=== PATIENT | female | born 1960 | race Caucasian/White ===

== ENCOUNTER 2017-03-16 06:53 | Day surgery (SDC) | payer OTHER ==
[~2017-03-16 06:53] MED LIST: RINGERS SOLUTION,LACTATED 1,000 ML IV PRN
[2017-03-16] MEDS ORDERED: RINGERS SOLUTION,LACTATED 1,000 ML IV ONE (07:35)
--- NOTE | 2017-03-16 08:49 | OR ---
Operative Report - Dictated Report Narrative: Date: 03/16/2017 Surgeon: José Miguel Lund MD Proctoring surgeon: Olu Bryan MD Preoperative diagnosis: Screening colonoscopy Postoperative diagnosis: Same. Normal colon. Procedure: Total Colonoscopy Description: This patient is undergoing a colonoscopy for screening purposes. After informed consent was obtained and appropriate premedication had been given by [employer] with the patient in left lateral decubitus position a flexible fiberoptic video colonoscope was introduced and advanced without difficulty under direct vision to the cecum. The usual landmarks were identified. Preparation was excellent and excellent views were obtained. The findings were of a normal cecum, normal ascending colon, normal transverse colon, normal descending and sigmoid colon. Rectum was normal. The mucosal color, vasculature, and texture were normal throughout. No suspicious mass lesions were seen. The patient tolerated the procedure well without any apparent complications and was discharged from the endoscopy suite to recovery in satisfactory condition.
[2017-03-16 09:42] VITALS: BP 122/69
== END 2017-03-16 06:54 | disposition home or self-care (01) ==
LOC: AMB 06:53
PROVIDERS: ATTEND Specialist
PROC: 0DJD8ZZ Inspection of Lower Intestinal Tract, Via Natural or Artificial Opening Endoscopic (ICD-10-PCS; principal; 2017-03-16 08:00)
DX: Z12.11 Encounter for screening for malignant neoplasm of colon (principal); E78.5 Hyperlipidemia, unspecified; F17.200 Nicotine dependence, unspecified, uncomplicated; Z68.31 Body mass index [BMI] 31.0-31.9, adult